=== PATIENT | male | born 1985 | race Caucasian/White ===

== ENCOUNTER 2023-06-03 12:59 | Emergency (ER) | payer MEDICAID ==
[~2023-06-03] VITALS: Ht 180.3 cm; Wt 95.5 kg
[2023-06-03 13:02] VITALS: TEMP 98.5
[2023-06-03] MEDS ORDERED: FAMOTIDINE 20 MG TABLET PO ONE (14:15)
[2023-06-03] MEDS ORDERED: DiphenhydrAMINE HCL 50 MG/ML VIAL IM ONE (14:15)
[2023-06-03] MEDS ORDERED: MethylPREDNISolone SOD SUCC 125 MG/2 ML VIAL IM ONE (14:15)
[2023-06-03 15:23] VITALS: BP 138/91; PULSE 69; RESP 18
[2023-06-03] MEDS ORDERED: EPIN0.3P3 IM (16:14)
[2023-06-03] MEDS ORDERED: PRED-554 PO (16:14)
[2023-06-03] MEDS ORDERED: DIPH-1243 PO (16:14)
== END 2023-06-03 16:30 | disposition home or self-care (01) ==
LOC: EMS 13:01
DX: T78.40XA Allergy, unspecified, initial encounter (principal); F17.210 Nicotine dependence, cigarettes, uncomplicated; X58.XXXA Exposure to other specified factors, initial encounter; Y93.89 Activity, other specified; Y92.89 Other specified places as the place of occurrence of the external cause; Y99.8 Other external cause status
CPT/HCPCS: 99284; 96372; J1200; J2930

== ENCOUNTER 2023-06-16 00:11 | Emergency (ER) | payer MEDICAID ==
[~2023-06-16] VITALS: Ht 180.3 cm; Wt 95.5 kg
[~2023-06-16 00:11] MED LIST: DIPH-1243 PO; EPIN0.3P3 IM; PRED-554 PO
[2023-06-16 00:22] VITALS: TEMP 97.8
[2023-06-16 01:00] VITALS: BP 134/71; PULSE 77; RESP 17
[2023-06-16] MEDS ORDERED: PERTUSS(ACELL),DIPH,TET VAC/PF 0.5 ML SYRINGE IM. ONE (01:00)
[2023-06-16] MEDS ORDERED: AMOX1TAB16 PO (01:33)
[2023-06-16] MEDS ORDERED: LIDOCAINE 1% 20 ML VIAL SQ ONE (01:45)
[2023-06-16] MEDS ORDERED: LIDOCAINE 1% 10 ML VIAL SQ ONE (01:45)
== END 2023-06-16 02:39 | disposition home or self-care (01) ==
LOC: EMS 00:12
DX: S01.01XA Laceration without foreign body of scalp, initial encounter (principal); F17.210 Nicotine dependence, cigarettes, uncomplicated; Z88.5 Allergy status to narcotic agent; W01.0XXA Fall on same level from slipping, tripping and stumbling without subsequent striking against object, initial encounter; Y93.89 Activity, other specified; Y92.89 Other specified places as the place of occurrence of the external cause; Y99.8 Other external cause status
CPT/HCPCS: 99285; 70450; 90715; 90471; 12001; J3490

== ENCOUNTER 2023-06-20 17:07 | Emergency (ER) | payer MEDICAID ==
[~2023-06-20] VITALS: Ht 180.3 cm; Wt 109.1 kg
[~2023-06-20 17:07] MED LIST changes: +AMOX1TAB16 PO
[2023-06-20 17:13] VITALS: TEMP 97.8
[2023-06-20 18:04] VITALS: BP 142/79; PULSE 74; RESP 18
== END 2023-06-20 18:05 | disposition home or self-care (01) ==
LOC: EMS 17:07
DX: S01.91XD Laceration without foreign body of unspecified part of head, subsequent encounter (principal); Z88.6 Allergy status to analgesic agent; Z48.02 Encounter for removal of sutures; X58.XXXD Exposure to other specified factors, subsequent encounter
CPT/HCPCS: 99281; Z7502

== ENCOUNTER 2025-02-08 12:52 | Emergency (ER) | payer MEDICAID ==
[~2025-02-08] VITALS: Ht 180.3 cm; Wt 118.0 kg
[~2025-02-08 12:52] MED LIST changes: +AMOX-457 PO; -AMOX1TAB16 PO
[2025-02-08 13:10] VITALS: BP 144/79; PULSE 68; RESP 18; TEMP 98.6; O2SAT 98
[2025-02-08] MEDS: KETOROLAC TROMETHAMINE 60 MG/2 ML VIAL IM ONE (14:56)
[2025-02-08] MEDS: methocarbamoL 500 MG TABLET PO ONE (14:56)
[2025-02-08 15:06] LABS: GLUCOMETER DEV NAME(LOC) ER.7; GLUCOSE,POINT OF CARE 118 MG/DL (70-110)
[2025-02-08] MEDS ORDERED: METH-659 PO (15:07)
[2025-02-08] MEDS ORDERED: IBUP-1554 PO (15:07)
== END 2025-02-08 15:14 | disposition home or self-care (01) ==
LOC: EMS 12:57
DX: M62.838 Other muscle spasm (principal); G62.9 Polyneuropathy, unspecified; F15.90 Other stimulant use, unspecified, uncomplicated; M25.511 Pain in right shoulder; F17.210 Nicotine dependence, cigarettes, uncomplicated; Z79.899 Other long term (current) drug therapy; Z88.8 Allergy status to other drugs, medicaments and biological substances; Z79.52 Long term (current) use of systemic steroids; Z98.890 Other specified postprocedural states
CPT/HCPCS: 99283; 82962; 96372; J1885

== ENCOUNTER 2025-06-28 11:24 | Emergency (ER) | payer SELFPAY ==
[~2025-06-28] VITALS: Ht 180.3 cm; Wt 113.6 kg
[~2025-06-28 11:24] MED LIST changes: +IBUP-1554 PO; +METH-659 PO
[2025-06-28 11:29] VITALS: BP 141/81; PULSE 64; RESP 18; TEMP 98.4; O2SAT 99
[2025-06-28] MEDS: LIDOCAINE 5% TRANSDERMAL PATCH TD ONE (13:34)
[2025-06-28] MEDS: KETOROLAC TROMETHAMINE 30 MG/ML VIAL IM ONE (13:34)
== END 2025-06-28 14:39 | disposition home or self-care (01) ==
LOC: EMS 12:10
DX: G56.01 Carpal tunnel syndrome, right upper limb (principal); M25.511 Pain in right shoulder; F17.210 Nicotine dependence, cigarettes, uncomplicated; F15.90 Other stimulant use, unspecified, uncomplicated; Z98.890 Other specified postprocedural states
CPT/HCPCS: 99284; 73110; 73130; 96372; J1885